=== PATIENT | female | born 1940 | race Asian ===

== ENCOUNTER 2018-11-25 17:35 | Emergency (ER) | payer MEDICARE, OTHER ==
--- NOTE | 2018-11-25 20:10 | ED ---
Throat Pain/Nasal Congestion - HPI Summary HPI Summary: 78 yo female p/w sore throat associated with resolving flu-like sx of cough, chills and bodyaches, latter sx are better due afte taking Mucinex DM, Robutussion chest and cough and Advil but sore throat still remains, denies f/c - History of Current Complaint Chief Complaint: UCRespiratory Time Seen by Provider: 11/25/18 19:35 Hx Obtained From: Patient Onset/Duration: Lasting Days Cough: Nonproductive - Epiglottits Risk Factors Epiglottis Risk Factors: Negative - Allergies/Home Medications Allergies/Adverse Reactions: Allergies Allergy/AdvReac Type Severity Reaction Status Date / Time penicillin V Allergy Severe Swelling Verified 11/25/18 18:40 Of Face,Lips,& Throat prochlorperazine Allergy Severe Anaphylatic Verified 11/25/18 18:40 [From Compazine] Shock aspirin Allergy Intermediate Dizziness Verified 11/25/18 18:40 [From Darvon Compound-65] caffeine Allergy Intermediate Dizziness Verified 11/25/18 18:40 [From Darvon Compound-65] propoxyphene Allergy Intermediate Dizziness Verified 11/25/18 18:40 [From Darvon Compound-65] cephalexin Allergy Mild Rash Verified 11/25/18 18:40 erythromycin base Allergy Mild Rash And Verified 11/25/18 18:40 Itching azithromycin Allergy Unknown Verified 11/25/18 18:40 Reaction Details ciprofloxacin Allergy Unknown Verified 11/25/18 18:40 Reaction Details clarithromycin Allergy Unknown Verified 11/25/18 18:40 Reaction Details cyclobenzaprine Allergy Unknown Verified 11/25/18 18:40 Reaction Details fenoprofen [From Nalfon] Allergy Unknown Verified 11/25/18 18:40 Reaction Details nabumetone Allergy Unknown Verified 11/25/18 18:40 Reaction Details nortriptyline Allergy Unknown Verified 11/25/18 18:40 Reaction Details Penicillins Allergy Unknown Verified 11/25/18 18:40 Reaction Details sulfamethoxazole Allergy Unknown Verified 11/25/18 18:40 [From ] Reaction Details tramadol [From Ultram] Allergy Unknown Verified 11/25/18 18:40 Reaction Details trazodone Allergy Unknown Verified 11/25/18 18:40 Reaction Details trimethoprim [From Septra] Allergy Unknown Verified 11/25/18 18:40 Reaction Details PMH/Surg Hx/FS Hx/Imm Hx Previously Healthy: Yes Endocrine/Hematology History: Denies: Hx Diabetes, Hx Systemic Lupus Erythematosus, Hx Thyroid Disease Cardiovascular History: Reports: Hx Angina, Hx Hypercholesterolemia, Hx Hypertension Denies: Hx Congestive Heart Failure, Hx Pacemaker/ICD Respiratory History: Reports: Hx Asthma - On meds for seasonal allergies, Hx Seasonal Allergies Denies: Hx Chronic Obstructive Pulmonary Disease (COPD), Hx Lung Cancer, Hx Pneumonia, Hx Pulmonary Embolism GI History: Reports: Hx Gastrointestinal Bleed - Had bright red blood per rectum one year ago. Colonoscopy - with polyps Denies: Hx Ulcer History: Denies: Hx Dialysis, Hx Renal Disease Musculoskeletal History: Reports: Hx Arthritis, Hx Back Problems, Hx Orthopedic Injury Denies: Hx Rheumatoid Arthritis, Hx Osteoporosis, Hx Scoliosis Sensory History: Reports: Hx Contacts or Glasses Denies: Hx Hearing Aid Opthamlomology History: Reports: Hx Contacts or Glasses Neurological History: Denies: Hx Dementia, Hx Headaches, Hx Migraine, Hx Seizures, Hx Transient Ischemic Attacks (TIA), Other Neuro Impairments/Disorders Psychiatric History: Denies: Hx Anxiety, Hx Depression, Hx Panic Disorder, Hx Schizophrenia, Hx Bipolar Disorder - Cancer History Hx Chemotherapy: No Hx Radiation Therapy: No - Surgical History Surgery Procedure, Year, and Place: CATARACTS, LAPARSCOPIC SURGERY OVARIAN, D+C - Immunization History Date of Tetanus Vaccine: up to date Date of Influenza Vaccine: 2015 Infectious Disease History: Yes Infectious Disease History: Reports: Hx Tuberculosis - as a child Denies: Hx Hepatitis, Hx Human Immunodeficiency Virus (HIV), History Other Infectious Disease, Traveled Outside the [place] in Last 30 Days - Family History Known Family History: Positive: None, Hypertension, Other - CVA - father, Colon [place] - mother - Social History Alcohol Use: None Hx Substance Use: No Substance Use Type: Reports: None Hx Tobacco Use: No Smoking Status (MU): Never Smoked Tobacco Review of Systems - ROS Summary Review of Systems Summary: Constitutional: Negative Skin: Negative Eyes: Negative ENT: sore throat Cardiovascular: Negative Respiratory: resolving resp sx Gastrointestinal: Negative Genitourinary: Negative Musculoskeletal: Negative Neurological: Negative Psychological: Normal All Other Systems Reviewed And Are Negative: Yes All Other Systems Reviewed And Are Negative: Yes Physical Exam - Summary Physical Exam Summary: Vital Signs Reviewed: Yes Appearance: Positive: No Pain Distress Skin: Positive: Warm Head/Face: Positive: Normal Head/Face Inspection Eyes: Positive: Normal ENT: Positive: Normal ENT inspection Neck: Positive: Supple Respiratory/Lung Sounds: Positive: Clear to Auscultation. Negative: Rales, Rhonchi, Wheezes Cardiovascular: Positive: Normal, RRR, S1, S2 Abdomen Description: Positive: Nontender Musculoskeletal: Positive: Normal Neurological: Positive: Normal, CN Intact II-III Psychiatric: Positive: Normal, Affect/Mood Appropriate Triage Information Reviewed: Yes Vital Signs On Initial Exam: Initial Vitals Temp Pulse Resp BP Pulse Ox 37.2 C 73 18 155/84 99 11/25/18 18:14 11/25/18 18:14 11/25/18 18:14 11/25/18 18:14 11/25/18 18:14 Diagnostics - Vital Signs Vital Signs Temp Pulse Resp BP Pulse Ox 11/25/18 18:14 37.2 C 73 18 155/84 99 - Laboratory Lab Statement: Any lab studies that have been ordered have been reviewed, and results considered in the medical decision making process. EENT Course/Dx - Course Assessment/Plan: pharyngitis- rapid strep is neg, continue supporitve tx and salt water gargling - Diagnoses Provider Diagnoses: Pharyngitis Discharge - Sign-Out/Discharge Documenting (check all that apply): Patient Departure All imaging exams completed and their final reports reviewed: No Studies - Discharge Plan Condition: Stable Disposition: HOME Patient Education Materials: Pharyngitis (ED) Referrals: Luisa Jo MD [Primary Care Provider] - - Billing Disposition and Condition Condition: STABLE Disposition: Home
[2018-11-25 20:27] VITALS: BP 163/85
== END 2018-11-25 20:27 | disposition home or self-care (01) ==
LOC: UCEAST 17:35
DX: J02.9 Acute pharyngitis, unspecified (principal); I10 Essential (primary) hypertension; Z88.0 Allergy status to penicillin; Z88.1 Allergy status to other antibiotic agents; Z91.09 Other allergy status, other than to drugs and biological substances; Z88.5 Allergy status to narcotic agent; Z88.8 Allergy status to other drugs, medicaments and biological substances
CPT/HCPCS: 87651; 99212; G0463

== ENCOUNTER 2019-03-26 09:37 | Emergency (ER) | payer MEDICARE, OTHER ==
[2019-03-26 09:57] VITALS: BP 171/82
--- NOTE | 2019-03-26 10:33 | UC ---
Head Injury HPI - HPI Summary HPI Summary: 78-year-old Armenian speaking female who had a tree branch fall from a proximally 17 or 18 feet onto the top of her head one week ago. Since then she has had headaches and some dizziness. No nausea vomiting or diarrhea. She also has mild neck pain as well. She had no loss of consciousness however she states she felt like she was going to lose consciousness. She denies any weakness in her extremities although she has felt more fatigued than normal. - History Of Current Complaint Chief Complaint: UCHeadache Stated Complaint: HEAD INJURY Time Seen by Provider: 03/26/19 10:17 Hx Obtained From: Patient Hx Last Menstrual Period: Years ago-menopausal. ?: No Onset/Duration: Sudden Onset, Other - Injury happened 1 week ago. Severity Currently: Mild Severity Initially: Mild Pain Intensity: 3 Character: Dull Aggravating Factor(s): Nothing Alleviating Factor(s): Nothing Associated Signs And Symptoms: Positive: Neck Pain, Other - Mild headaches. - Allergies/Home Medications Allergies/Adverse Reactions: Allergies Allergy/AdvReac Type Severity Reaction Status Date / Time penicillin V Allergy Severe Swelling Verified 11/25/18 18:40 Of Face,Lips,& Throat prochlorperazine Allergy Severe Anaphylatic Verified 11/25/18 18:40 [From Compazine] Shock aspirin Allergy Intermediate Dizziness Verified 11/25/18 18:40 [From Darvon Compound-65] caffeine Allergy Intermediate Dizziness Verified 11/25/18 18:40 [From Darvon Compound-65] propoxyphene Allergy Intermediate Dizziness Verified 11/25/18 18:40 [From Darvon Compound-65] cephalexin Allergy Mild Rash Verified 03/26/19 09:46 erythromycin base Allergy Mild Rash And Verified 03/26/19 09:46 Itching azithromycin Allergy Unknown Verified 03/26/19 09:46 Reaction Details ciprofloxacin Allergy Unknown Verified 03/26/19 09:46 Reaction Details clarithromycin Allergy Unknown Verified 03/26/19 09:46 Reaction Details cyclobenzaprine Allergy Unknown Verified 03/26/19 09:46 Reaction Details fenoprofen [From Nalfon] Allergy Unknown Verified 03/26/19 09:46 Reaction Details nabumetone Allergy Unknown Verified 03/26/19 09:46 Reaction Details nortriptyline Allergy Unknown Verified 03/26/19 09:46 Reaction Details Penicillins Allergy Unknown Verified 03/26/19 09:46 Reaction Details sulfamethoxazole Allergy Unknown Verified 03/26/19 09:46 [From ] Reaction Details tramadol [From Ultram] Allergy Unknown Verified 03/26/19 09:46 Reaction Details trazodone Allergy Unknown Verified 03/26/19 09:46 Reaction Details trimethoprim [From Septra] Allergy Unknown Verified 03/26/19 09:46 Reaction Details PMH/Surg Hx/FS Hx/Imm Hx Previously Healthy: Yes Cardiovascular History: Hypertension Other History Of: Negative For: HIV, Hepatitis B, Hepatitis C - Surgical History Surgical History: Yes Surgery Procedure, Year, and Place: CATARACTS, LAPARSCOPIC SURGERY OVARIAN, D+C - Family History Known Family History: Positive: None, Hypertension, Other - CVA - father, Colon [place] - mother - Social History Alcohol Use: None Substance Use Type: None Smoking Status (MU): Never Smoked Tobacco - Immunization History Most Recent Influenza Vaccination: unknown Most Recent Tetanus Shot: 2012 Most Recent Pneumonia Vaccination: 2014 Review of Systems All Other Systems Reviewed And Are Negative: Yes Neurological: Positive: Headache, Other - Fatigue more than normal. Is Patient Immunocompromised?: No Physical Exam Triage Information Reviewed: Yes Appearance: Well-Appearing, No Pain Distress, Well-Nourished Vital Signs: Initial Vital Signs Temp 99.1 F 03/26/19 09:51 Pulse 71 03/26/19 09:51 Resp 16 03/26/19 09:51 BP 171/82 03/26/19 09:51 Pulse Ox 98 03/26/19 09:51 Vital Signs Reviewed: Yes Eyes: Positive: Conjunctiva Clear, Other: - PERRLA, EOMI. ENT: Positive: Pharynx normal, TMs normal, Uvula midline Neck: Positive: Supple, No Lymphadenopathy, Other: - Mild tenderness on palpation mid C-spine. No deformity, erythema, bruising or swelling is noted. Respiratory: Positive: Chest non-tender, Lungs clear, Normal breath sounds, No respiratory distress, No accessory muscle use Cardiovascular: Positive: RRR, No Murmur, Pulses Normal, Brisk Capillary Refill Abdomen Description: Positive: Nontender, No Organomegaly, Soft. Negative: CVA Tenderness (R), CVA Tenderness (L) Bowel Sounds: Positive: Present Musculoskeletal: Positive: Strength Intact, ROM Intact, No Edema, Other: - Skull is intact and nontender. Neurological: Positive: Alert, Muscle Tone Normal - Normal dystidiokinesis, good finger to nose bilaterally, good arm and leg strength against resistance bilaterally, reflexes +2 at the knee, Romberg negative, good heel-to-toe forward and backward, good [id number], negative eye drift. Psychological Exam: Normal Head Injury Course/Dx - Course Course Of Treatment: Liberty collar was applied. CT C-spine:Indication: Neck injury after head trauma. CT of the cervical spine was obtained in the axial plane. Sagittal and coronal reconstructed images were obtained. The skull base demonstrates mastoid air cells to be well aerated. No fracture is identified. The C1 ring is intact. The atlantoaxial joint is unremarkable. No fracture of the cervical spine is noted. The vertebral bodies appear normal in height. Degenerative disc disease at C5-C6 with dorsal and ventral osteophyte formation is noted. Right uncovertebral joint hypertrophy narrows the right foramen. The lung apices are unremarkable. IMPRESSION: Degenerative disc disease at C5-C6 and C6-C7 is noted. Degenerative changes of the atlantoaxial joint is noted. CT Brain:CT of the brain performed without IV contrast. Comparison is made with previous exam dated July 07, 2011. Ventricular structures are midline. No midline shift is noted. With ventricular structures are midline. No midline shift is noted. There is central and cortical atrophy noted. The extra-axial spaces are unremarkable. There is no evidence of intracranial mass or hemorrhage. No other high or low density lesion is noted. Subdural hygroma is noted over the right frontal convexity which has been present since prior exam of 2010. Mastoid air cells and paranasal sinuses are grossly unremarkable. IMPRESSION: No intracranial mass or hemorrhage is noted. Age-appropriate atrophy with subdural hygroma in the right frontal convexity unchanged from previous exams. - Differential Dx/Diagnosis Provider Diagnosis: Concussion Discharge - Sign-Out/Discharge Documenting (check all that apply): Patient Departure All imaging exams completed and their final reports reviewed: Yes - Discharge Plan Condition: Fair Disposition: HOME Patient Education Materials: Concussion (ED) Referrals: Luisa Jo MD [Primary Care Provider] - Additional Instructions: Follow-up with your primary care provider on Friday or Friday if you have continued symptoms. Go to the emergency room for any worsening symptoms, vomiting or change in normal mental status. - Billing Disposition and Condition Condition: FAIR Disposition: Home - Attestation Statements Provider Attestation: Per institutional requirements, I have reviewed the chart, however, I was not consulted specifically or made aware of this patient by the midlevel provider. I did not personally evaluate, interact with , or disposition this patient.
== END 2019-03-26 11:53 | disposition home or self-care (01) ==
LOC: UCEAST 09:37
DX: S06.0X0A Concussion without loss of consciousness, initial encounter (principal); W20.8XXA Other cause of strike by thrown, projected or falling object, initial encounter; Y92.821 Forest as the place of occurrence of the external cause; I10 Essential (primary) hypertension; Z88.0 Allergy status to penicillin; Z88.2 Allergy status to sulfonamides
CPT/HCPCS: 70450; 72125; 99212; G0463

== ENCOUNTER 2019-08-19 11:05 | Emergency (ER) | payer MEDICARE, OTHER ==
--- OUTSIDE RECORDS SUMMARY | 2019-08-19 11:11 | XMS REPORT | Continuity of Care Document ---
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 Problems Active Problems Provider Date Gastroesophageal reflux disease CLAU Meier Onset: 06/22/2012 Irritable bowel syndrome Osvaldo Garcia MD Onset: 12/01/2012 Hyperlipidemia Osvaldo Garcia MD Onset: 12/01/2012 Osteoarthrosis involving multiple sites Osvaldo Garcia MD Onset: 12/01/2012 but not designated as generalized Essential hypertension Osvaldo Garcia MD Onset: 12/01/2012 Degenerative joint disease of hand Loki Riley MD Onset: 09/06/2013 Senile osteoporosis Loki Riley MD Onset: 09/06/2013 Benign essential hypertension Tasia Horn MD Onset: 11/13/2010 Localized, primary osteoarthritis of the Tasia Horn MD Onset: 11/13/2010 hand Pure hypercholesterolemia Tasia Horn MD Onset: 11/13/2010 Flatulence, eructation and gas pain Martha Massey PA-C Onset: 2017 Irritable bowel syndrome characterized Martha Massey PA-C Onset: by constipation Social History Type Date Description Comments Sex Unknown Tobacco Use Start: Unknown Patient has never smoked Smoking Status Reviewed: 07/12/19 Patient has never smoked Allergies, Adverse Reactions, Alerts Active Allergies Reaction Severity Comments Date Penicillin 06/22/2012 Zithromax 06/22/2012 Septra 06/22/2012 Keflex 06/22/2012 Clindamycin Urticaria Severe 04/07/2012 Erythromycin 06/22/2012 Ambien headache,dizzy Severe 10/03/2010 Cyclobenzaprine 06/22/2012 Avelox Nausea and Vomiting Severe 06/25/2010 Nabumetone 06/22/2012 Lipitor muscle pain Severe 06/25/2010 Compazine 06/22/2012 Pravachol muscle pain Severe 06/25/2010 Darvon 06/22/2012 HCTZ weak Severe 09/22/2007 Nalfon 06/22/2012 Skelaxin Nausea and Vomiting Severe 09/22/2007 Biaxin 06/22/2012 Elavil Nausea and Vomiting Severe 09/22/2007 Cipro 06/22/2012 Lexapro Nausea and Vomiting Severe 09/22/2007 Nortriptyline 06/22/2012 Trazodone HCL Nausea and Vomiting Severe 09/22/2007 Ultram 06/22/2012 Cyclobenzaprine HCL Nausea and Vomiting Severe 09/22/2007 Trazodone 06/22/2012 Levaquin Nausea and Vomiting Severe 09/22/2007 Darvon Compound-65 Nausea and Vomiting Severe 09/22/2007 PCN tongue swelling Severe 09/22/2007 Boniva Urticaria Severe 09/22/2007 Spironolactone 09/09/2017 Medications Active Medications SIG Qnty Indications Ordering Date Provider Esomeprazole take one capsule 90caps Martha Moran 01/07/2017 Magnesium by mouth one time SYED Massey 20mg daily Capsules DR Harding daily with water Osvaldo Ramirez 03/22/2016 Tablets during the day Jose MAGANA Premarin Insert 0.5 gm 42.500units N76.3 Mena Jo 10/31/2015 0.625mg/GM twice weekly hMD Cream Symbicort inhale two puffs 6.900units J45.20 Mena Jo 06/22/2015 by mouth twice a h, 80-4.5mcg/Act day Aerosol Epinastine HCL 1 drop each eye 5units Mena Jo 01/10/2015 0.05% twice a day MD chad Solution Triamcinolone apply thin film 80units 782.1 Vineet Mitchell FNP 10/14/2014 Acetonide to the affected 0.1% Cream area twice daily Amlodipine Besylate 3 by mouth every 270tabs I10 Mena Jo 2012 day hMD 2.5mg Tablets Flonase 1 intranasal puff 16units 461.9 Vineet Mitchell,PAINT AND TABLE EDGER 08/05/2011 50mcg/Act to each nostril Suspension daily Triamcinolone Unknown Acetonide Zyrtec Allergy 1 by mouth every 30caps Cotton,Mena 10mg day h, MD Capsules Patanol 1 drop both eyes 5units Cotton,Mena 0.1% Solution every day as h, needed allergies Align 1 po qd 30caps Unknown 4mg Capsules Biotin 1 by mouth every Unknown 5mg Tablets day Immunizations CPT Code Status Date Vaccine Lot # [id number] Given 06/22/2015 Influenza Virus Vaccine, Quadrivalent, Split, Preservative Free 19827 Given 06/22/2015 Pneumococcal Conjugate Vaccine 13 Valent For Intramuscular Use 29507 Given 06/20/2014 Influenza Virus Vaccine, Quadrivalent, Split, Preservative Free 99043 Given 06/20/2014 Hepatitis [place] [address] Given 06/10/2013 Influenza Virus Vaccine Split Virus Use For Individual 3Yr Older 28385 Given 06/23/2012 Pneumovax 84546 Given 06/23/2012 Hepatitis A Vaccine, Adult, Im Q2035 Given 07/09/2011 Influenza Virus Vaccine Split Virus 3 Years Of Age And Older 14964 Given 08/18/2009 Influenza Vaccine, Pandemic Formulation, H1N1 06885 Given 08/18/2009 Complete Exam - Established Patient 71347 Given 05/30/2009 Td Preservative Free For Use In Individuals 7 Yrs Or Older 43324 Given 05/08/2009 Influenza Virus [place], [place] [address] Given 07/01/2008 Influenza Virus Vaccine, [place] [address] Given 07/10/2007 Zoster Shingles Vaccine For Subcutaneous Injection 71824 Given 07/10/2007 Zoster Shingles Vaccine For Subcutaneous Injection 69422 Given 06/30/2007 Influenza Virus Vaccine, Split Virus, Im Vital Signs Date Vital Result Comment 07/12/2019 3:18pm Height 62 inches 5'2" Weight 146.00 lb BP Systolic 145 mmHg BP Diastolic 86 mmHg Heart Rate 76 /min BMI (Body Mass Index) 26.7 kg/m2 12/03/2018 1:28pm Height 62 inches 5'2" Weight 150.00 lb BP Systolic 128 mmHg BP Diastolic 83 mmHg Heart Rate 71 /min BMI (Body Mass Index) 27.4 kg/m2 Results Description No Information Available Procedures Description No Information Available Medical Devices Description No Information Available Encounters Description No Information Available Assessments Date Code Description Provider 07/12/2019 K58.2 Mixed irritable bowel syndrome Wendy Calles MD 07/12/2019 K21.9 Gastro-esophageal reflux disease without Wendy Mendez MD esophagitis Plan of Treatment Future Appointment(s):01/11/2020 3:00 pm - Wendy Calles MD at [facility]07/12/2019 - Wendy Calles MDK58.2 Mixed irritable bowel dntoovktU59.9 Gastro-esophageal reflux disease without esophagitis Functional Status Description No Information Available Mental Status Description No Information Available Referrals Description No Information Available
[2019-08-19 11:22] VITALS: BP 163/81
--- NOTE | 2019-08-19 12:24 | UC ---
Hand/Wrist HPI - HPI Summary HPI Summary: 79-year-old female presents with 2 day history of redness, tenderness, and swelling of her left index finger. States 2 weeks ago she accidentally stuck her finger with a sewing needle and then a few days ago sustained a superficial to the same finger while peeling vegetables. States she has been applying antibiotic ointment and bandaging the finger but over the past 2 days the redness, tenderness, and swelling have progressively worsened. Denies fever, chills, joint pain, or drainage. - History Of Current Complaint Chief Complaint: UCUpperExtremity Stated Complaint: FINGER COMPLAINT Time Seen by Provider: 08/19/19 12:03 Hx Obtained From: Patient Hx Last Menstrual Period: Years ago-menopausal. Pain Intensity: 5 - Allergies/Home Medications Allergies/Adverse Reactions: Allergies Allergy/AdvReac Type Severity Reaction Status Date / Time penicillin V Allergy Severe Swelling Verified 08/19/19 11:22 Of Face,Lips,& Throat prochlorperazine Allergy Severe Anaphylatic Verified 08/19/19 11:22 [From Compazine] Shock aspirin Allergy Intermediate Dizziness Verified 08/19/19 11:22 [From Darvon Compound-65] caffeine Allergy Intermediate Dizziness Verified 08/19/19 11:22 [From Darvon Compound-65] propoxyphene Allergy Intermediate Dizziness Verified 08/19/19 11:22 [From Darvon Compound-65] cephalexin Allergy Mild Rash Verified 08/19/19 11:22 erythromycin base Allergy Mild Rash And Verified 08/19/19 11:22 Itching azithromycin Allergy Unknown Verified 08/19/19 11:22 Reaction Details ciprofloxacin Allergy Unknown Verified 08/19/19 11:22 Reaction Details clarithromycin Allergy Unknown Verified 08/19/19 11:22 Reaction Details cyclobenzaprine Allergy Unknown Verified 08/19/19 11:22 Reaction Details fenoprofen [From Nalfon] Allergy Unknown Verified 08/19/19 11:22 Reaction Details nabumetone Allergy Unknown Verified 08/19/19 11:22 Reaction Details nortriptyline Allergy Unknown Verified 08/19/19 11:22 Reaction Details Penicillins Allergy Unknown Verified 08/19/19 11:22 Reaction Details sulfamethoxazole Allergy Unknown Verified 08/19/19 11:22 [From Septra] Reaction Details tramadol [From Ultram] Allergy Unknown Verified 08/19/19 11:22 Reaction Details trazodone Allergy Unknown Verified 08/19/19 11:22 Reaction Details trimethoprim [From ] Allergy Unknown Verified 08/19/19 11:22 Reaction Details Home Medications: Home Medications Calcium Carbonate/Vitamin D3 [Calcium 600 + Vit D Tablet] 1 each PO DAILY [History Confirmed 08/19/19] Mometasone Furoate [Elocon] 0.1 % EX DAILY PRN 08/19/19 [History Confirmed 08/19] Multivitamins/Minerals TAB* [Thera M Plus TAB*] 1 tab PO DAILY 08/19/19 [ History Confirmed 08/19/19] Wheat Dextrin [Benefiber On The Go] 1 pow PO DAILY 08/19/19 [History Confirmed 08/19/19] PMH/Surg Hx/FS Hx/Imm Hx Endocrine History: Dyslipidemia Cardiovascular History: Hypertension Respiratory History: COPD GI/ History: Gastroesophageal Reflux Other History Of: Negative For: HIV, Hepatitis B, Hepatitis C - Surgical History Surgical History: Yes Surgery Procedure, Year, and Place: CATARACTS, LAPARSCOPIC SURGERY OVARIAN, D+C - Family History Known Family History: Positive: Hypertension, Other - CVA - father, Colon [place] - mother - Social History Occupation: Retired Lives: With Family Alcohol Use: None Substance Use Type: None Smoking Status (MU): Never Smoked Tobacco - Immunization History Most Recent Influenza Vaccination: unknown Most Recent Tetanus Shot: 2012 Most Recent Pneumonia Vaccination: 2014 Review of Systems All Other Systems Reviewed And Are Negative: Yes Constitutional: Negative: Fever, Chills Skin: Positive: Other - See HPI Respiratory: Positive: Negative Cardiovascular: Positive: Negative Gastrointestinal: Positive: Negative Genitourinary: Positive: Negative Motor: Negative: Weakness Neurovascular: Negative: Decreased Sensation Musculoskeletal: Negative: Arthralgia, Decreased ROM Neurological: Positive: Negative Is Patient Immunocompromised?: No Physical Exam - Summary Physical Exam Summary: GENERAL APPEARANCE: Well developed, well nourished, alert and cooperative, and appears to be in no acute distress. CARDIAC: Normal S1 and S2. No S3, S4 or murmurs. Rhythm is regular. There is no peripheral edema, cyanosis or pallor. Extremities are warm and well perfused. Capillary refill is less than 2 seconds. Peripheral pulses intact. LUNGS: Clear to auscultation without rales, rhonchi, wheezing or diminished breath sounds. ABDOMEN: Positive bowel sounds. Soft, nondistended, nontender. No guarding or rebound. No masses or hepatosplenomegally. MUSKULOSKELETAL: ROM intact to all extremities. No joint erythema or tenderness. Normal muscular development. Normal gait. EXTREMITIES: Mild erythema and edema to the distal, lateral aspect of the left index finger without induration or fluctuance. Circulation and sensation intact. SKIN: Skin normal color, texture and turgor for age. Triage Information Reviewed: Yes Vital Signs: Initial Vital Signs Temp 99.8 F 08/19/19 11:13 Pulse 72 08/19/19 11:13 Resp 16 08/19/19 11:13 BP 163/81 08/19/19 11:13 Pulse Ox 96 08/19/19 11:13 Vital Signs Reviewed: Yes Hand/Wrist Course/Dx - Course Course Of Treatment: 79-year-old female presents with 2 day history of redness, tenderness, and swelling of her left index finger. States 2 weeks ago she accidentally stuck her finger with a sewing needle and then a few days ago sustained a superficial to the same finger while peeling vegetables. States she has been applying antibiotic ointment and bandaging the finger but over the past 2 days the redness, tenderness, and swelling have progressively worsened. Denies fever, chills, joint pain, or drainage. Afebrile. Hypertensive otherwise vital signs stable. Patient had mild erythema and edema to the distal, lateral aspect of the left index finger without induration or fluctuance. No joint tenderness. Full range of motion. Circulation and sensation intact. Discussed with the patient that her exam is consistent with cellulitis of the left index finger. Patient has multiple allergies listed to antibiotics therefore we will try to treat with clindamycin 300 mg 3 times a day 5 days. Patient is to follow-up with her primary care provider in 2 days for recheck of her symptoms. Anticipatory guidance and warning symptoms were reviewed with the patient. Verbalizes understanding and agrees with plan of care. - Differential Dx/Diagnosis Differential Diagnosis/HQI/PQRI: Cellulitis, Felon, Puncture Wound Provider Diagnosis: Cellulitis of left index finger Discharge ED - Sign-Out/Discharge Documenting (check all that apply): Patient Departure All imaging exams completed and their final reports reviewed: No Studies - Discharge Plan Condition: Stable Disposition: HOME Prescriptions: Clindamycin HCl 300 mg PO TID #15 capsule Patient Education Materials: Cellulitis (ED) Referrals: Luisa Jo MD [Primary Care Provider] - 2 Days Additional Instructions: You appear to have an infection of the skin called cellulitis. We will start her on an antibiotic to treat for the infection. Take clindamycin 300 mg 1 capsule 3 times a day for 5 days. Follow-up with your primary care provider in 2 days for recheck of symptoms. Call today for an appointment. Seek immediate medical attention in the emergency room if you develop a fever greater than 100.5 F, the redness continues to rapidly spread, increased swelling of the finger, he developed any numbness or tingling in the finger, or have any worsening of symptoms. - Billing Disposition and Condition Condition: STABLE Disposition: Home
== END 2019-08-19 12:57 | disposition home or self-care (01) ==
LOC: UCEAST 11:05
DX: L03.012 Cellulitis of left finger (principal); I10 Essential (primary) hypertension; J44.9 Chronic obstructive pulmonary disease, unspecified; Z88.0 Allergy status to penicillin; Z88.6 Allergy status to analgesic agent; Z88.8 Allergy status to other drugs, medicaments and biological substances; Z88.1 Allergy status to other antibiotic agents; Z88.2 Allergy status to sulfonamides
CPT/HCPCS: 99212; G0463

== ENCOUNTER 2020-01-31 17:04 | Inpatient (IN) ==
[2020-01-31] MEDS ORDERED: NS 0.9% 1000 ml BAG 1,000 ML IV ONE (17:16)
[2020-01-31 18:27] LABS: ABS Lymphocytes 0.4 10^3/ul (1.0-4.8); ABS Monocytes 0.4 10^3/ul (0-0.8); Hematocrit 40 % (35-47); Hemoglobin 13.5 g/dL (12.0-16.0); Lymphocyte % 8.2 %; Mean Corpuscular HGB Conc 34 g/dL (31-36); Mean Corpuscular Hemoglobin 31 pg (27-31); Mean Corpuscular Volume 91 fL (80-97); Platelet Count 182 10^3/uL (150-450); Red Blood Count 4.41 10^6 /uL (3.70-4.87); Red Cell Distribution Width 14 % (10-15); White Blood Count 5.3 10^3/uL (3.5-10.8)
[2020-01-31 18:43] LABS: Albumin/Globulin Ratio 1.5 (1-3); BUN/Creatinine Ratio 14.4 (8-20); C Reactive Protein 86.31 mg/L (<8.01); Calcium 8.6 mg/dL (8.6-10.3); EGFR African American 46.7 (>60); EGFR Non-African American 38.6 (>60); Globulin 2.7 g/dL (2-4); Potassium 3.2 mmol/L (3.5-5.0); Total Bilirubin 0.3 mg/dL (0.2-1.0); Total Protein 6.7 g/dL (6.4-8.9)
[2020-01-31 19:51] LABS: Magnesium 2.1 mg/dL (1.9-2.7)
[2020-01-31] MEDS ORDERED: Enoxaparin 40 MG/0.4 ML SYR(*) SUBCUT SCH (20:00)
[2020-01-31] MEDS ORDERED: KCL 20 MEQ/100 ML IVPREMIX 20 MEQ/100 ML BAG IV SCH (20:00)
[2020-01-31] MEDS ORDERED: NS 0.9% w/ 40 Meq KCL 1000 ML 1,000 ML IV SCH (22:00)
[2020-02-01 00:39] LABS: INR 1.05 (0.82-1.09)
[2020-02-01 07:08] LABS: ABS Lymphocytes 0.7 10^3/ul (1.0-4.8); ABS Monocytes 0.4 10^3/ul (0-0.8); Eosinophil % 0.7 %; Hematocrit 34 % (35-47); Hemoglobin 11.8 g/dL (12.0-16.0); Lymphocyte % 22.9 %; Mean Corpuscular HGB Conc 34 g/dL (31-36); Mean Corpuscular Hemoglobin 31 pg (27-31); Mean Corpuscular Volume 91 fL (80-97); Mean Platelet Volume 8.4 fL (7.4-10.4); Platelet Count 160 10^3/uL (150-450); Red Blood Count 3.76 10^6 /uL (3.70-4.87); Red Cell Distribution Width 14 % (10-15); White Blood Count 2.8 10^3/uL (3.5-10.8)
[2020-02-01 07:17] LABS: Calcium 7.4 mg/dL (8.6-10.3); EGFR African American 76.6 (>60); EGFR Non-African American 63.3 (>60); Potassium 3.7 mmol/L (3.5-5.0)
[2020-02-01 08:33] LABS: Urine Appearance Clear; Urine Bilirubin Negative (Negative); Urine Blood Negative (Negative); Urine Color Straw; Urine Glucose Negative (Negative); Urine Ketones Negative (Negative); Urine Nitrite Negative (Negative); Urine Protein Negative (Negative); Urine Specific Gravity 1.004 (1.010-1.030); Urine Urobilinogen Negative (Negative)
[2020-02-01] MEDS: NS 0.9% 1000 ml BAG 1,000 ML IV SCH ×2 (08:41→20:45)
[2020-02-01] MEDS: Enoxaparin 40 MG/0.4 ML SYR(*) SUBCUT SCH (20:46)
[2020-02-02 07:44] LABS: ABS Eosinophils 0.1 10^3/ul (0-0.6); ABS Lymphocytes 0.9 10^3/ul (1.0-4.8); ABS Monocytes 0.4 10^3/ul (0-0.8); Hematocrit 35 % (35-47); Hemoglobin 11.8 g/dL (12.0-16.0); Lymphocyte % 28.4 %; Mean Corpuscular HGB Conc 34 g/dL (31-36); Mean Corpuscular Hemoglobin 31 pg (27-31); Mean Corpuscular Volume 90 fL (80-97); Mean Platelet Volume 8.3 fL (7.4-10.4); Platelet Count 174 10^3/uL (150-450); Red Blood Count 3.86 10^6 /uL (3.70-4.87); Red Cell Distribution Width 14 % (10-15); White Blood Count 3.3 10^3/uL (3.5-10.8)
[2020-02-02 07:55] LABS: BUN/Creatinine Ratio 5.6 (8-20); C Reactive Protein 10.6 mg/L (<8.01); Calcium 7.8 mg/dL (8.6-10.3); EGFR African American 95.6 (>60); Potassium 3.2 mmol/L (3.5-5.0)
[2020-02-02] MEDS ORDERED: Potassium Chlor 20 meq TAB.ER PO ONE (12:43)
[2020-02-02] MEDS: Enoxaparin 40 MG/0.4 ML SYR(*) SUBCUT SCH (19:46)
[2020-02-03] MEDS: Enoxaparin 40 MG/0.4 ML SYR(*) SUBCUT SCH (21:23)
[2020-02-04] MEDS: Enoxaparin 40 MG/0.4 ML SYR(*) SUBCUT SCH (20:33)
[2020-02-05 08:00] VITALS: BP 154/77
[2020-02-05] MEDS ORDERED: Riboflavin (B2) 100 mg TAB(NF) PO SCH (09:00)
== END 2020-02-05 10:00 | disposition home health service (06) | DRG 179 ==
LOC: ED 17:04 → MED 17:04
PROVIDERS: ADMIT Nurse Practitioner; ATTEND Internal Medicine